=== PATIENT | female | born 1995 | race Caucasian/White ===

== ENCOUNTER 2018-04-09 17:30 | Emergency (ER) | payer OTHER, MEDICAID, SELFPAY ==
--- NOTE | 2018-04-09 17:38 | DI.RAD.S_ITS ---
PROCEDURE: XR ANKLE LT MIN 3V INDICATIONS: fall can't walk TECHNIQUE: 3 views of the ankle were acquired. COMPARISON: None. FINDINGS: Bones: Fractures of the third and fourth metatarsal bases. Soft tissues: No tibiotalar joint effusion. Achilles tendon appears normal. IMPRESSION: Third and fourth metatarsal fractures Dictated by: Ladarius Steve M.D. on 04/09/2018 at 19:18 Approved by: Ladarius Steve M.D. on 04/09/2018 at 19:19
--- NOTE | 2018-04-09 17:38 | PC.NURSE ---
Inversion injury while hiking
[2018-04-09 17:41] VITALS: BP 123/63; PULSE 86; RESP 18; TEMP 37; O2SAT 100
--- NOTE | 2018-04-09 17:55 | ED_ITS ---
HPI - Extremity Injury (Lower) <ISAURA Prasad - Last Filed: 04/09/18 21:58> General Chief Complaint: Extremity Injury, Lower Stated Complaint: L foot possibly broken, buckled on trail Time Seen by Provider: 04/09/18 17:38 History of Present Illness HPI Narrative: 23-year-old female here for complaint of pain into her left foot. She was walking on a trail earlier today when she states that her foot buckled underneath her causing pain. Pain is limited to the left foot. She denies any other injuries. Increased pain with movement of the left foot and also with weight-bearing. She denies any head injury no loss of consciousness. MD complaint: foot injury Related Data Previous Rx's Medication Instructions Recorded hydrocodone-acetaminophen [[place]] 1 tab PO Q6H PRN #15 tab 04/09/18 Allergies Allergy/AdvReac Type Severity Reaction Status Date / Time Sulfa (Sulfonamide Allergy Verified 04/09/18 17:48 Antibiotics) Review of Systems <ISAURA Prasad - Last Filed: 04/09/18 21:58> Constitutional Denies chills, Denies fever(s), Denies lethargy and Denies weakness Eyes Denies change in vision, Denies eye discharge, Denies irritation and Denies loss of vision ENT Ears, Nose, Mouth, and Throat: Denies change in voice, Denies neck pain and Denies sore throat Cardiovascular Denies chest pain, Denies irregular heart rhythm, Denies lightheadedness, Denies palpitations, Denies dyspnea, Denies dyspnea on exertion and Denies orthopnea Respiratory Denies cough, Denies dyspnea, Denies dyspnea on exertion and Denies wheezing Gastrointestinal Gastrointestinal: Denies abdominal pain, Denies change in bowel habits, Denies diarrhea, Denies nausea and Denies vomiting Genitourinary Denies hematuria, Denies flank pain, Denies urinary incontinence and Denies urinary urgency Musculoskeletal Denies neck pain Comments: Left foot pain and injury Integumentary/Breasts Denies pruritus, Denies erythema, Denies rash and Denies wounds Neurologic Denies confusion, Denies loss of vision and Denies weakness Psychiatric Denies anxiety, Denies confusion, Denies depression, Denies homicidal ideation and Denies suicidal ideation Endocrine Denies palpitations Hematologic/Lymphatic Denies easy bruising Allergic/Immunologic Denies wheezing Exam <ISAURA Prasad - Last Filed: 04/09/18 21:58> Initial Vital Signs Initial Vital Signs: Vital Signs Temperature 98.6 F 04/09/18 17:41 Pulse Rate 86 04/09/18 17:41 Respiratory Rate 18 04/09/18 17:41 Blood Pressure 123/63 H 04/09/18 17:41 Pulse Oximetry 100 04/09/18 17:41 Const General: cooperative and well developed Nutritional Appearance: well nourished Orientation: alert, awake, oriented x3 and not confused [facility] Mouth: oral mucosae normal and moist mucous membranes Eyes Conjunctivae: conjunctivae normal Sclera: sclerae normal Pupils: PERRL EOM: EOM intact bilaterally Neck Neck: normal visual inspection, trachea midline, No lymphadenopathy, No midline deformity and No JVD Lymphatic: No lymphedema Resp Effort & Inspection: normal respiratory effort, able to speak in complete sentences, no respiratory distress and no use of accessory muscles Auscultation: clear to auscultation bilaterally, no rales, no rhonchi and no wheezes Cardio Rate: regular rate Rhythm: regular rhythm Heart Sounds: no click, no gallops, no murmurs and no rubs Pulses: normal peripheral pulses Skin General: no rashes or lesions noted, No jaundice and No petechiae Extrem Other: Swelling into the distal left foot. Slight ecchymosis. No deformities have. Distal range of motion is intact. Distal sensation is intact. Distal cap refill less than 2 sec. <Lauri Cadet DO - Last Filed: 04/10/18 03:12> Initial Vital Signs Initial Vital Signs: Vital Signs Temperature 98.6 F 04/09/18 17:41 Pulse Rate 86 04/09/18 17:41 Respiratory Rate 18 04/09/18 17:41 Blood Pressure 123/63 H 04/09/18 17:41 Pulse Oximetry 100 04/09/18 17:41 Course <ISAURA Prasad - Last Filed: 04/09/18 21:58> Orders Ordered: ED Orders 04/09/18 19:26 XR foot LT min 3V Stat Discontinued Medications Hydrocodone Bitart/Acetaminophen (Vicodin Prepack) 1 bottle MISC SEEINSTR ONE Stop: 04/09/18 20:33 Last Admin: 04/09/18 20:45 Dose: 1 bottle Hydromorphone HCl (Dilaudid) 1 mg IV NOW ONE Stop: 04/09/18 19:06 Last Admin: 04/09/18 19:15 Dose: 1 mg Vital Signs - 8 hr 04/09/18 20:02 Pulse Rate 78 Blood Pressure [Left Arm] 128/67 H Pulse Oximetry 100 <Lauri Cadet DO - Last Filed: 04/10/18 03:12> Orders Ordered: ED Orders 04/09/18 19:26 XR foot LT min 3V Stat Discontinued Medications Hydrocodone Bitart/Acetaminophen (Vicodin Prepack) 1 bottle MISC SEEINSTR ONE Stop: 04/09/18 20:33 Last Admin: 04/09/18 20:45 Dose: 1 bottle Hydromorphone HCl (Dilaudid) 1 mg IV NOW ONE Stop: 04/09/18 19:06 Last Admin: 04/09/18 19:15 Dose: 1 mg Vital Signs - 8 hr 04/09/18 20:02 Pulse Rate 78 Blood Pressure [Left Arm] 128/67 H Pulse Oximetry 100 MDM - Extremity Injury (Lower) <ISAURA Prasad - Last Filed: 04/09/18 21:58> Imaging Data left ankle: Radiologist's impression: Signed Patient: Elizabeth Manjarrez MR#: [id number] : 1995 Acct:[id number] Age/Sex: 23 / F Date of Service: 04/09/18 Loc: ED Accession Number: [id number] Procedure: XR ankle LT min 3V Ordering Provider: Vania Ramos D.O. PROCEDURE: XR ANKLE LT MIN 3V INDICATIONS: fall can't walk TECHNIQUE: 3 views of the ankle were acquired. COMPARISON: None. FINDINGS: Bones: Fractures of the third and fourth metatarsal bases. Soft tissues: No tibiotalar joint effusion. Achilles tendon appears normal. IMPRESSION: Third and fourth metatarsal fractures Dictated by: Ladarius Steve M.D. on 04/09/2018 at 19:18 Approved by: Ladarius Steve M.D. on 04/09/2018 at 19:19 left foot: Radiologist's impression: PROCEDURE: XR FOOT LT MIN 3V INDICATIONS: Pain to distal foot TECHNIQUE: 3 views of the foot were acquired. COMPARISON: None. FINDINGS: Bones: Fractures of the bases of the third and fourth metatarsals . Subtle linear lucency projects in the cuboid Soft tissues: No tibiotalar joint effusion. Achilles tendon appears normal. IMPRESSION: Third and fourth metatarsal fractures . Possible nondisplaced cuboid fracture although technically indeterminate. Dictated by: Ladarius Steve M.D. on 04/09/2018 at 19:44 Approved by: Ladarius Steve M.D. on 04/09/2018 at 19:[address] [facility] Narrative Medical decision making narrative: X-ray of the left ankle and left foot shows 3rd and 4th metatarsal fractures. She is placed in a posterior leg splint for comfort and support. Crutches for nonweightbearing. She is referred Orthopedics. She is to call the office tomorrow to schedule follow-up appointment later this week. Ice and elevation help with swelling. Over-the- counter ibuprofen as needed for discomfort. [place] is provided for breakthrough pain. For any worsening symptoms return to the emergency room. Discharge Plan Departure Patient Disposition: Home, Self-Care Clinical Impression: Foot fracture, left Discharge Date/Time: 04/09/18 20:47 Interventions: ED Discharge Assessment Last Done: 04/09/18 20:45 Instructions: Foot Fracture Activity Restrictions/Additional Instructions: X-rays were obtained shows fractures of the left foot. You have been placed in a splint for comfort and support use as directed. Use crutches for nonweightbearing. You referred to Orthopedics. Call their office tomorrow morning to schedule follow-up appointment later this week. Elevate leg to help with swelling also use ice 20 min at a time several times a day over the next few days also help with swelling. Use [id number] ibuprofen as needed for any discomfort. Small amount of [place] was provided for breakthrough pain use as directed and no driving while on the [place]. For any worsening symptoms return to the emergency room. Prescriptions: New hydrocodone-acetaminophen [[place]] 5-325 mg tablet 1 tab PO Q6H PRN (Reason: pain) Qty: 15 RF: 0 Referrals: Sarwat Puckett MD [Physician] - Wilfrido Jones MD [Primary Care Provider] - Stand Alone Forms: Work/School Restrictions <Lauri Cadet DO - Last Filed: 04/10/18 03:12> Cosign ED Attending Cosignature Attestation: I was immediately available in the department for consultation. Documentation has been reviewed. I agree with assessment and plan.
[2018-04-09] MEDS: HYDROMORPHONE 0.5 MG INJ 1 MG IV (19:15)
--- NOTE | 2018-04-09 19:26 | DI.RAD.S_ITS ---
PROCEDURE: XR FOOT LT MIN 3V INDICATIONS: Pain to distal foot TECHNIQUE: 3 views of the foot were acquired. COMPARISON: None. FINDINGS: Bones: Fractures of the bases of the third and fourth metatarsals . Subtle linear lucency projects in the cuboid Soft tissues: No tibiotalar joint effusion. Achilles tendon appears normal. IMPRESSION: Third and fourth metatarsal fractures . Possible nondisplaced cuboid fracture although technically indeterminate. Dictated by: Ladarius Steve M.D. on 04/09/2018 at 19:44 Approved by: Ladarius Steve M.D. on 04/09/2018 at 19:48
--- NOTE | 2018-04-09 19:32 | PC.NURSE ---
Unable to document hydromorphone 1mg that was given at 5 d/t EMR stating that I am doing in that screen on another computer even after that computer has been turned off. Will try again later.
[2018-04-09 20:02] VITALS: BP 128/67; PULSE 78; O2SAT 100
[2018-04-09] MEDS: HYDROCODONE/ACET 5/325 PREPACK 1 BOTTLE MISC (20:45)
== END 2018-04-09 20:47 | disposition home or self-care (01) ==
PROVIDERS: Emergency Provider Nurse Practitioner Family; PCP Family Medicine
DX: S92.302A Fracture of unspecified metatarsal bone(s), left foot, initial encounter for closed fracture (principal); W01.0XXA Fall on same level from slipping, tripping and stumbling without subsequent striking against object, initial encounter; Y93.01 Activity, walking, marching and hiking; Y92.828 Other wilderness area as the place of occurrence of the external cause
CPT/HCPCS: 29515; 73610; 73630; 96374; 99282; 99284; J1170

== ENCOUNTER → 2018-04-26 17:06 | Outpatient (CLI) | payer OTHER, MEDICAID, SELFPAY ==
--- NOTE | 2018-04-26 | DI.MRI.S_ITS ---
PROCEDURE: MR ANKLE LT WO CON INDICATIONS: STRESS FRACTURE OF METATARSAL BONE OF LEFT FOOT TECHNIQUE: Noncontrast sagittal T1 spin echo and T2 fast spin echo with fat saturation, axial proton density fast spin echo and T2 fast spin echo with fat saturation, coronal T1 spin echo and T2 fast spin echo with fat saturation through the ankle/hindfoot. COMPARISON: [facility], MR, MR FOOT LT WO CON, 04/26/2018, 17:26. [facility], CR, XR ANKLE LT MIN 3V, 04/09/2018, 17:26. FINDINGS: Image quality: Excellent. Bones and joints: There is bone marrow edema within the midfoot involving the bases of the 1st, 2nd, 3rd, and 4th metatarsals as well as the middle and lateral cuneiforms and cuboid with corresponding relatively nondisplaced fracture lines. There is a longitudinal fracture line in the cuboid involving its entire length with minimal displacement. The fractures along the metatarsal bases and in the cuneiforms extending to the tarsometatarsal joints. No hindfoot coalitions. No osteochondral injuries of the talar dome. No pathologic joint effusions. Medial structures: The posterior tibialis, flexor digitorum longus, and flexor hallucis longus tendons are intact. The posterior tibial neurovascular bundle appears normal within the tarsal tunnel, without extrinsic mass effect. The deltoid and spring ligaments appear intact. Lateral structures: The anterior talofibular, calcaneofibular, and posterior talofibular ligaments appear intact. More superiorly, the anterior and posterior tibiofibular ligaments appear intact, as is the intermalleolar ligament. The tibiofibular syndesmosis is normal in width at 2 mm or less. The peroneus longus and brevis tendons demonstrate normal location and morphology. Adjacent bony peroneal tubercle and retrotrochlear prominence are normal in size. The sinus tarsi demonstrates preserved fatty signal. The calcaneonavicular and calcaneocuboid components of the bifurcate ligament appear intact. The dorsal calcaneocuboid ligament appears intact. Anterior structures: The tibialis anterior, extensor hallucis longus, and extensor digitorum longus tendons appear intact. The dorsal talonavicular ligament appears intact. Posterior and plantar structures: Achilles tendon demonstrate mild tendinopathy distally at its insertion. Medial and lateral bands of the plantar fascia are of normal thickness. No abductor digiti quinti muscle atrophy to suggest Harp neuropathy. IMPRESSION: 1. Multiple mid foot fractures as described compatible with patient's suspected stress fractures. 2. No acute internal derangement in the ankle. Dictated by: Javier Sibley M.D. on 04/27/2018 at 13:31 Approved by: Javier Sibley M.D. on 04/27/2018 at 13:39
--- NOTE | 2018-04-26 | DI.MRI.S_ITS ---
PROCEDURE: MRFOOT LT WO CON INDICATIONS: STRESS FRACTURE OF METATARSAL BONE OF LEFT FOOT TECHNIQUE: Noncontrast sagittal T1 spin echo and T2 fast spin echo with fat saturation, long-axis T1 spin echo and T2 fast spin echo with fat saturation, short-axis T1 spin echo and T2 fast spin echo with fat saturation through the forefoot. COMPARISON: [facility], MR, MR ANKLE LT WO CON, 04/26/2018, 17:43. FINDINGS: Image quality: Excellent. Bones and joints: There is bone marrow edema within the bases of the 1st through 4th metatarsals with associated mildly nondisplaced fracture lines. In addition, there is also bone marrow edema within the lateral cuneiform and cuboid with associated nondisplaced fracture lines. Findings are suggestive of stress fractures with proximity to the 1st through 4th tarsometatarsal joints. No dislocations. The sesamoid bones appear in expected positions, without internal edema. No metatarsophalangeal joint degeneration. No intraosseous lesions. Soft tissues: A small amount of intermetatarsal bursal fluid is demonstrated within the 1st and 3rd metatarsal interspaces. The visualized plantar foot muscles demonstrate mild edema. Visualized flexor and extensor tendons appear intact, without tenosynovitis. The distal insertions of the peroneus brevis and longus tendons appear intact. The principal Lisfranc ligament appears grossly intact although there is a fracture adjacent to its insertion at the base of the 2nd metatarsal. Sagittal images demonstrate no evidence for plantar plate tears. IMPRESSION: 1. Multiple nondisplaced fractures within the midfoot as described compatible with patient's suspected history of stress fractures. 2. Fracture at the base of the 2nd metatarsal is in proximity to the Lisfranc ligament which appears grossly intact. No definite malalignment of the tarsometatarsal joints. 3. Edema of the visualized plantar musculature likely represent reactive changes and less likely muscle strains or denervation. Dictated by: Javier Sibley M.D. on 04/27/2018 at 12:17 Approved by: Javier Sibley M.D. on 04/27/2018 at 12:27
== END ==
PROVIDERS: Family Provider Family Medicine; PCP Family Medicine; Visit Provider Podiatrist
DX: M84.375A Stress fracture, left foot, initial encounter for fracture (principal)
CPT/HCPCS: 73718; 73721

== ENCOUNTER → 2018-08-18 15:55 | Outpatient (CLI) | payer OTHER, MEDICAID, SELFPAY ==
--- NOTE | 2018-08-18 | DI.MRI.S_ITS ---
PROCEDURE: MRFOOT LT WO CON INDICATIONS: FOOT PAIN TECHNIQUE: Noncontrast sagittal T1 spin echo and T2 fast spin echo with fat saturation, long-axis T1 spin echo and T2 fast spin echo with fat saturation, short-axis T1 spin echo and T2 fast spin echo with fat saturation through the forefoot. COMPARISON: [facility], , FOOT LT WO CON, 04/26/2018, 17:26. FINDINGS: Image quality: Excellent. Bones and joints: The mother displaced fractures within the proximal 1st, 2nd, 3rd and 4th metatarsals are present, as before. There is decreased marrow edema adjacent to the fracture lines, compatible with interval healing. Previously seen edema within the 3rd cuneiform and cuboid has resolved. The sesamoid bones appear in expected positions, without internal edema. No metatarsophalangeal joint degeneration. No intraosseous lesions. Soft tissues: Small amount of fluid between the 1st and 2nd metatarsal heads, 2nd and 3rd metatarsal heads, and the 3rd and 4th metatarsal heads is present. The visualized plantar foot muscles demonstrate normal signal and bulk. Visualized flexor and extensor tendons appear intact, without tenosynovitis. The principal Lisfranc ligament appears intact. There is moderate ill-defined edema within the plantar subcutaneous fat of the proximal 2nd digit. Sagittal images demonstrate no evidence for plantar plate tears. IMPRESSION: 1. Healing mid foot fractures/contusions. No evidence of new fracture. CT may be helpful for further assessment secondary to the mild displacement of the fractures. 2. Soft tissue STIR signal elevation involving the 2nd digit, which may indicate soft tissue injury, inflammation, or infection. 3. Intermetatarsal bursitis involving the 1st, 2nd, and 3rd interspaces. Dictated by: Leyda Modi M.D. on 08/18/2018 at 16:50 Approved by: Leyda Modi M.D. on 08/18/2018 at 17:01
== END ==
PROVIDERS: Family Provider Family Medicine; PCP Family Medicine; Visit Provider Podiatrist
DX: M79.672 Pain in left foot (principal); S92.312D Displaced fracture of first metatarsal bone, left foot, subsequent encounter for fracture with routine healing; S92.322D Displaced fracture of second metatarsal bone, left foot, subsequent encounter for fracture with routine healing; S92.332D Displaced fracture of third metatarsal bone, left foot, subsequent encounter for fracture with routine healing; S92.342D Displaced fracture of fourth metatarsal bone, left foot, subsequent encounter for fracture with routine healing; M71.572 Other bursitis, not elsewhere classified, left ankle and foot
CPT/HCPCS: 73718

== ENCOUNTER 2018-11-06 06:04 | Day surgery (SDC) | payer OTHER, MEDICAID, SELFPAY ==
[2018-11-01 08:12] VITALS: BMI 48.4
[2018-11-06] VITALS (11 sets, daily range): BP systolic 100–160; BP diastolic 60–107; PULSE 83–96; RESP 14–20; TEMP 36–36.6; O2SAT 92–98; BMI 48.4
--- NOTE | 2018-11-06 07:26 | PM.PREOP ---
Pre-operative Note Interval Note History & Physical reviewed/Exam performed by Physician: Yes Changes to H&P: No
--- NOTE | 2018-11-06 07:31 | PM.OP.1 ---
Operative Date/Time/Diagnoses Date of procedure: 11/06/18 Time of procedure: 07:31 Pre-op diagnosis: Left midfoot fractures with posttraumatic arthritis Post-op diagnosis: same Procedure & Clinicians Procedure: Left second and third tarsometatarsal joint arthrodesis Same procedure as scheduled: Yes Indications: Continued pain across area of foot injury. Conservative measures failed to alleviate her pain and she wished to have surgical intervention at this time. Surgeon: Arlin Corral Click Yes if Unassisted: Yes Anesthesia Type: General Operative Notes Closure Type: primary Specimen(s): none sent Prosthetic devices, grafts, tissues, transplants, or devices: [place] Cotton Wedge bone graft 5mm and 7mm DBX 1cc bone putty from [employer] [place] plates x2 3.5 mm locking screws x8 3.5 mm non-locking screws x2 Estimated Blood Loss (mL): 40 Blood products transfused: none Tourniquet time (min): 120 Procedure in detail: The patient was brought to the operating room and placed on the operating table in the supine position. Tourniquet was placed about the thigh. Well padded, appropriately aligned. After induction of general anesthesia the foot and ankle were prepped and draped in the usual aseptic manner. The tourniquet was inflated. Incision was made over the lateral 2nd metatarsal cuneiform joint extending to the base of the 2nd and 3rd metatarsals. The incision was deepened through subcutaneous tissues being careful to identify and retract all vital neurovascular structures. All bleeders were cauterized and ligated as necessary. Attention was then directed to the 2nd metatarsocuneiform joint which was entered. The joint appeared to be a little bit soft as it was somewhat easy to use a curette and osteotome to resect the cartilage off either side of the bone. There was no direct fracture noted. The edges dorsally of this joint however, were a little bit proud with some minor exostoses or remnants of fracture noted. Once this was gently taken down A drill was used to fenestrate either side of the former MC joint. The area was irrigated with copious amounts normal sterile saline. The same procedure was performed through the same incision to the 3rd tarsometatarsal joint. The base of 3rd metatarsal was once again a little bit soft and I was able to resect either edge in the same fashion. No nonunited fractures were noted at the metatarsal or cuneiform. In this dissection and inspection the decision was made to not place and intercuneiform screw across and instead perform the arthrodesis singularly. Measuring the gaps, a Cotton wedge bone graft was placed in each former joint. This was gently tamped down and each seated nicely, filling the gaps. Plates were chosen for each location. With the aid of C-arm the olive wire was placed for temporary holding through the plate on the 2nd TMT. Series of screws were placed across the plate and the fusion site showed good alignment and strength. There was a small space between the two metatarsals that was a small opening from the takedown at the proximal IM so this gap was filled with the bone putty as above. The second plate was placed across the 3rd TMT and then a series of screws placed across it. The fusion site showed good alignment and strength. After irrigation the tourniquet was deflated and a prompt hyperemic response was seen to the foot. Deep and subcutaneous closure was closed performed with Vicryl and nylon to the skin. The foot was dressed with a lightly compressive sterile dressing and her boot. She was transferred to PACU with vital signs stable. Complications: none Condition: stable Disposition: PACU Plan for aftercare: Following a period of postoperative monitoring the patient will be discharged to home on written and oral postoperative instructions including keeping the dressing dry and intact, no weight to the foot, icing and elevating the foot when seated at home. DVT prevention techniques have been reviewed. She starts her Lovenox injections tomorrow, and I confirmed the dosage with the pharmacist as well as any interactions with her current medications. For the 1st postoperative visit the dressing will be changed and close to the 4th postoperative week we will likely take her first x-ray. NWB likely 6 wks.
[2018-11-06] MEDS: LACTATED RINGERS 1,000 ML 42 ML IV ×2 (07:34→10:25)
[2018-11-06] MEDS: APREPITANT 40 MG CAPSULE PO (07:44)
[2018-11-06] MEDS: CEFAZOLIN 2 GM/100 ML FROZ.PIGGY IV (08:16)
[2018-11-06] MEDS: CEFAZOLIN 1 GM VIAL IV (08:30)
--- NOTE | 2018-11-06 08:41 | SUR.OPER ---
Supine on padded OR bed, head on pillow, arms secured on padded arm boards at <90 degrees abduction, legs uncrossed, tape over blanket over lower legs.BUMP UNDER LEFT HIP. PATIENT SECURED WITH BELT AND TAPE.
[2018-11-06] MEDS: BUPIVACAINE 0.5% (PF) VIAL 30 ML INJ (09:02)
[2018-11-06] MEDS: ACETAMINOPHEN IV 1,000 MG/100 ML VIAL 400 MG IV (10:32)
[2018-11-06] MEDS: fentaNYL 100 MCG/2 ML INJ 50 MCG IV ×2 (11:40→11:50)
--- NOTE | 2018-11-06 12:21 | SUR.PHASEII ---
PT ARRIVED TO PHASE II VIA STRETCHER. PT SITTING UP IN BED WITH SURGICAL FOOT ELEVATED. PT ABLE TO MOVE TOES ON SURGICAL EXTREMITY, +SENSTATION. PT FAMILY AT BEDSIDE. PT DENIES ANY PAIN AT THIS TIME. PT CHEWING ON ICE CHIPS. BED IN LOWEST POSITION AND CALL LIGHT GIVEN TO PT. PT APPEARS COMFORTABLE AT THIS TIME.
[2018-11-06] MEDS: HYDROCODONE/ACET 5/325 TABLET 1 TAB PO (12:59)
[2018-11-06] MEDS: ONDANSETRON 4 MG/2 ML INJ IV (13:03)
--- NOTE | 2018-11-06 13:04 | SUR.PHASEII ---
Erin fell on ground when attempting to administer to patient. Wasted with Viktoriya Morgan RN.
== END 2018-11-06 13:30 | disposition home or self-care (01) ==
PROVIDERS: Family Provider Family Medicine; PCP Family Medicine; Visit Provider Podiatrist
PROC: 0QBP0ZZ Excision of Left Metatarsal, Open Approach (ICD-10-PCS; CPT 28292; principal; 2018-11-06 07:45)
DX: S92.325A Nondisplaced fracture of second metatarsal bone, left foot, initial encounter for closed fracture (principal); S92.335A Nondisplaced fracture of third metatarsal bone, left foot, initial encounter for closed fracture; S93.602A Unspecified sprain of left foot, initial encounter
CPT/HCPCS: 28730; J0131; J0690; J1100; J2250; J2405; J2704; J3010; J8501